=== PATIENT | female | born 1985 | race Caucasian/White ===

== ENCOUNTER 2022-01-05 11:25 | Emergency (ER) | payer OTHER, SELFPAY ==
--- NOTE | ~2022-01-05 | XR_ITS ---
EXAMINATION: XR chest 2V DATE: 01/05/2022 12:22 INDICATION: Cough and fever TECHNIQUE: PA and lateral views of the chest were obtained. COMPARISON: None FINDINGS: The lungs are clear with no focal airspace opacities, pulmonary edema, pleural effusion or pneumothor ax. The cardiomediastinal silhouette is normal. Cholecystectomy clips in right upper quadrant. Minima l thoracic spondylosis. IMPRESSION: 1. No acute cardiopulmonary disease. Reviewed, dictated and finalized at location B.
[2022-01-05 11:44] VITALS: BP 151/81; PULSE 95; RESP 19; TEMP 37.4; O2SAT 97
--- NOTE | 2022-01-05 11:58 | ED.GENADULT ---
HPI - General Adult General Chief complaint: Unspecified Stated complaint: mult c/o Time Seen by Provider: 01/05/22 11:57 History of Present Illness HPI narrative: 36-year-old female presents the emergency room for sudden onset of fever, sinus congestion, postnasal drip, sore throat, productive cough and body aches. Patient admits to a T-max of 101.9 yesterday. Is not taking any medications for symptoms. Denies abdominal pain or chest pain. Denies any known sick contacts. Related Data Allergies Allergy/AdvReac Type Severity Reaction Status Date / Time guaifenesin Allergy Mild Hives / Verified 01/05/22 11:49 Red Face morphine AdvReac Unknown N&V Verified 01/05/22 11:49 Review of Systems Review of Systems: CONSTITUTIONAL: reports fever, chills EYES: Denies visual changes, redness, or discharge. ENT: Reports rhinorrhea, congestion, and sore throat CARDIOVASCULAR: Denies chest pain, palpitations, or edema. RESPIRATORY: Reports cough or dyspnea. GASTROINTESTINAL: Denies abdominal pain, nausea, vomiting, or diarrhea. GENITOURINARY: Denies dysuria or hematuria. SKIN: Denies rash or itching. MUSCULOSKELETAL: Denies back pain, joint pain, or myalgia. NEUROLOGIC: Denies headache, numbness, dizziness, or weakness. PSYCHIATRIC: Denies anxiety or depression. [facility] Social History Social History Gender identity (if verbalized by the patient): Female Course Vital Signs Vital signs: Vital Signs Temperature 37.4 C 01/05/22 11:44 Pulse Rate 95 01/05/22 11:44 Respiratory Rate 01/05/22 11:44 Blood Pressure 151/81 H 01/05/22 11:44 Pulse Oximetry 97 01/05/22 11:44 Oxygen Delivery Room Air 01/05/22 11:44 Temperature 37.4 C 01/05/22 11:44 Pulse Rate 95 01/05/22 11:44 Respiratory Rate 19 01/05/22 11:44 Blood Pressure 151/81 H 01/05/22 11:44 Pulse Oximetry 97 01/05/22 11:44 Oxygen Delivery Room Air 01/05/22 11:44 Medical Decision Making Vital Signs Vital Signs: Vital Signs Temperature 37.4 C 01/05/22 11:44 Pulse Rate 95 01/05/22 11:44 Respiratory Rate 01/05/22 11:44 Blood Pressure 151/81 H 01/05/22 11:44 Pulse Oximetry 97 01/05/22 11:44 Oxygen Delivery Room Air 01/05/22 11:44 Temperature 37.4 C 01/05/22 11:44 Pulse Rate 95 01/05/22 11:44 Respiratory Rate 19 01/05/22 11:44 Blood Pressure 151/81 H 01/05/22 11:44 Pulse Oximetry 97 01/05/22 11:44 Oxygen Delivery Room Air 01/05/22 11:44 Lab Data Labs: Lab Results 01/05/22 Range/Units 12:24 SARS-CoV-2 RNA (RT-PCR) Positive A Discharge Plan Discharge Clinical Impression: COVID Patient Disposition: Home, Self-Care Condition: Stable Instructions: Antibiotic Form, COVID-19 (Coronavirus Disease 2019) (ED) Additional Instructions: Tylenol and ibuprofen as needed for body aches and fever. May take Mucinex DM for the cough. Flonase for Sudafed for the nasal congestion. Isolate per CDC guidelines which is 7 days from onset of symptoms. Prescriptions: New pseudoephedrine HCl 30 mg tablet 30 mg PO Q4-6H PRN (Reason: nasal congestion) Qty: 30 0RF Rx Instructions: DNExceed 4 doses/24h No Action methylprednisolone 4 mg tablets,dose pack See Rx Instructions .ROUTE .COMPLEX Qty: 21 0RF Rx Instructions: orally per package directions Zyrtec 10 mg capsule 10 mg PO DAILY Qty: 10 0RF Follow-up/Referrals: UNKNOWN,DOCTOR [Non-Staff] - Time of Disposition: 13:49
[2022-01-05 13:28] LABS: SARS-CoV-2 RNA PCR Positive
== END 2022-01-05 14:39 | disposition home or self-care (01) ==
PROVIDERS: Emergency Provider Nurse Practitioner Family; PCP Nurse Practitioner Family
DX: U07.1 COVID-19 (principal)
CPT/HCPCS: 71046; 96372; 99283; C9803; J1100; U0003; U0005

== ENCOUNTER 2023-05-31 12:55 | Emergency (ER) | payer OTHER, SELFPAY ==
[2023-05-31 13:05] VITALS: BP 170/100; PULSE 82; RESP 16; TEMP 36.8; O2SAT 100
--- NOTE | 2023-05-31 16:03 | ED.SKABFB ---
HPI - Skin/Abscess/Foreign Bdy General Chief complaint: Skin/Abscess/Foreign Body Stated complaint: hives/cough Time Seen by Provider: 05/31/23 15:34 Source: patient Mode of arrival: ambulatory Limitations: no limitations History of Present Illness HPI narrative: This is a 37 yo who presents with multiple scattered lesions across her body. She has also had a cough. She noticed them last week for several days. She took benadryl and this seemed to help. No new soaps/detergents/food/etc. Lesions are pruritic. She denies any diarrhea, diarphoresis, difficulty breathing. Cough has been productive of yellow phlegm and caused some post tussive emesis today. No fevers. Her kids don't have a rash. Works in a dental clinic. Only other allergies are fabric softener (particularly B[employer] brand), guaifenesin, and morphine; no exposures to these. No new medications. 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 HEAD: Normocephalic, atraumatic. EYES: Non injected, non icteric ENT: Nares clear, no rhinorrhea or epistaxis. Moist mucous membranes. No submandibular or buccal swelling. Tongue normal size, not swollen. Uvula midline. NECK: Supple. No meningismus. CHEST: Speaking in full sentences. No respiratory distress. HEART: Regular rate and rhythm. . ABDOMEN: Obese but Soft, nondistended. EXTREMITIES: Normal range of motion. No edema. SKIN: Warm, dry. Scattered urticarial lesions across abdomen/chest. NEURO: No focal deficits. Alert and oriented x3. PSYCH: Normal mood and affect. Course Vital Signs Vital signs: Vital Signs Temperature 98.2 F 05/31/23 13:05 Pulse Rate 82 05/31/23 13:05 Respiratory Rate 16 05/31/23 13:05 Blood Pressure 170/100 H 05/31/23 13:05 Pulse Oximetry 100 05/31/23 13:05 Oxygen Delivery Room Air 05/31/23 13:05 Temperature 98.2 F 05/31/23 13:05 Pulse Rate 70 05/31/23 18:05 Respiratory Rate 17 05/31/23 18:05 Blood Pressure 147/92 H 05/31/23 18:05 Pulse Oximetry 98 05/31/23 18:05 Oxygen Delivery Room Air 05/31/23 13:05 MDM - Skin/Abscess/Foreign Bdy MDM Narrative Medical decision making narrative: Patient presents with lesions scattered across her body. They were responding to Benadryl last week but have recurred. She has also developed a cough with post-tussive emesis but no fevers. No other systemic symptoms of allergic reaction such as bronchorrhea, throat tightness, altered mental status, GI symptoms. Lesions are classically hives/urticaria, erythematous and raised. Does not fit a dermatomal distribution or have the appearance of zoster. In regards to the cough, She is amenable to viral testing; this is negative. For the hives, she has already been taking benadryl, an H1 antagonist. An additional histamine receptor rebeca (H2 antagonist) is prescribed as is a corticosteroid. She is advised to follow up with her PCP and/or dermatology. Stable for discharge. Differential Diagnosis Differential diagnosis: Likely urticaria, herpes zoster, allergic reaction to drug, insect bites and contact dermatitis Lab Data Labs: Lab Results 05/31/23 Range/Units 16:19 Influenza A (RT-PCR) Negative (Negative) Influenza B (RT-PCR) Negative (Negative) SARS-CoV-2 RNA (RT-PCR) Negative (Negative) Discharge Plan Discharge Clinical Impression: Hives Patient Disposition: Home, Self-Care Condition: Stable Instructions: Antibiotic Form, Urticaria (ED
[2023-05-31 17:11] LABS: Influenza A QL RT-PCR Negative (Negative); Influenza B QL RT-PCR Negative (Negative); SARS-CoV-2 RNA PCR Negative (Negative)
[2023-05-31 18:05] VITALS: BP 147/92; PULSE 70; RESP 17; O2SAT 98
== END 2023-05-31 18:06 | disposition home or self-care (01) ==
PROVIDERS: Emergency Provider Student in an Organized Health Care Education/Training Program; PCP Nurse Practitioner Family
DX: L50.9 Urticaria, unspecified (principal); Z20.822 Contact with and (suspected) exposure to COVID-19
CPT/HCPCS: 87636; 99199; 99283

== ENCOUNTER 2024-04-11 10:10 | Emergency (ER) | payer OTHER, SELFPAY ==
[2024-04-11 10:22] VITALS: BP 136/75; PULSE 66; RESP 16; TEMP 36.4; O2SAT 98
[2024-04-11 10:29] LABS: EDSTREPNEGPOS1 Negative (Negative)
--- NOTE | 2024-04-11 10:47 | ED.URI ---
HPI - URI/Sore Throat General Chief Complaint: Upper Respiratory Infection Stated Complaint: strep symptoms Time Seen by Provider: 04/11/24 10:40 Source: patient and RN notes reviewed Mode of arrival: ambulatory Limitations: no limitations History of Present Illness HPI Narrative: Patient presents today complaining of 2 day history of sore throat and cough. Denies any additional symptoms to include shortness of breath, fever, rhinorrhea or congestion. She has been taking NyQuil at night with mild relief and currently rates her sore throat 11/03. Related Data Allergies Allergy/AdvReac Type Severity Reaction Status Date / Time guaifenesin Allergy Mild Hives / Verified 04/11/24 10:25 Red Face morphine AdvReac Unknown N&V Verified 04/11/24 10:25 Review of Systems Review of Systems: CONSTITUTIONAL: Denies body aches, fever, chills, or sweats. EYES: Denies visual changes, redness, or discharge. ENT: Denies rhinorrhea, congestion, or otalgia.+ sore throat CARDIOVASCULAR: Denies chest pain, palpitations, or edema. RESPIRATORY: Denies dyspnea.+ cough GASTROINTESTINAL: Denies abdominal pain, nausea, vomiting, or diarrhea. GENITOURINARY: Denies dysuria or hematuria. SKIN: Denies rash, itching, or wounds. MUSCULOSKELETAL: Denies back pain, joint pain, or myalgia. NEUROLOGIC: Denies headache, numbness, tingling, or weakness. PSYCH: Denies depression or anxiety. 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 Please see nursing chart for further information. There is no relevant family history pertinent to the presenting complaint Exam Narrative: GENERAL: Well-appearing, well-nourished, and in no acute distress. HEAD: Normocephalic, atraumatic. EYES: EOMI. No redness or drainage. Conjunctivae normal. ENT: Mucous membranes pink and moist. Nares clear. No rhinorrhea. TMs normal bilaterally. Throat mildly erythematous without edema or exudate. Moderate amount of white postnasal drainage. Uvula midline. NECK: Normal AROM. Supple. No lymphadenopathy. CHEST: No respiratory distress. Clear to auscultation. HEART: Regular rate and rhythm. No murmur appreciated. EXTREMITIES: Normal range of motion. No edema. SKIN: Warm, dry, no rash. Capillary refill normal. Normal skin turgor. NEURO: No focal deficits. Alert and oriented x3. Gait steady. PSYCH: Normal affect. No signs of depression or anxiety. Course Course Level of Care: Express Care Visit Vital Signs Vital signs: Vital Signs Temperature 97.6 F 04/11/24 10:22 Pulse Rate 66 04/11/24 10:22 Respiratory Rate 16 04/11/24 10:22 Blood Pressure 136/75 04/11/24 10:22 Pulse Oximetry 98 04/11/24 10:22 Oxygen Delivery Room Air 04/11/24 10:22 Temperature 97.6 F 04/11/24 10:22 Pulse Rate 66 04/11/24 10:22 Respiratory Rate 16 04/11/24 10:22 Blood Pressure 136/75 04/11/24 10:22 Pulse Oximetry 98 04/11/24 10:22 Oxygen Delivery Room Air 04/11/24 10:22 Reviewed MDM - URI/Sore Throat MDM Narrative Medical decision making narrative: Rapid strep negative. Culture pending. Symptoms likely viral in etiology. Discussed [id number] medication use and duration of illness. Prescription for Tessalon Perle sent over for cough. Anticipatory guidance given. Differential Diagnosis Differential diagnosis: Likely upper respiratory infection, viral infection, bronchitis and other (Strep throat) Lab Data Attestation: I reviewed the patient's lab results. Labs: Lab Results 04/11/24 Range/Units 10:28 POC Grp A Strep Screen Negative (Negative) [facility]
== END 2024-04-11 10:59 | disposition home or self-care (01) ==
PROVIDERS: Emergency Provider Nurse Practitioner; PCP Nurse Practitioner Family
DX: J06.9 Acute upper respiratory infection, unspecified (principal); K21.9 Gastro-esophageal reflux disease without esophagitis
CPT/HCPCS: 87081; 87880; 99213; G0463